=== PATIENT | male | born 1985 | race Hispanic/Latino ===

== ENCOUNTER → 2022-01-21 | Outpatient (CLI) | payer BC, OTHER | END | disposition home or self-care (01) | LOC: RAH 16:13 | PROVIDERS: ATTEND Emergency Medicine | DX: S33.5XXA Sprain of ligaments of lumbar spine, initial encounter (principal); X58.XXXA Exposure to other specified factors, initial encounter; Y93.89 Activity, other specified; Y92.89 Other specified places as the place of occurrence of the external cause; Y99.0 Civilian activity done for income or pay | CPT/HCPCS: 72100 ==

== ENCOUNTER 2025-08-10 16:10 | Emergency (ER) | payer SELFPAY ==
[~2025-08-10] VITALS: Ht 175.3 cm; Wt 213.2 kg
[2025-08-10 16:34] LABS: IMMATURE GRANULOCYTE ABSOLUTE 0.03 K/uL (0-1); NUCLEATED RED BLOOD CELLS 0.0 % (0.0-0.19); PLATELET COUNT (AUTO) 361 K/uL (130-400); RED BLOOD CELL COUNT(AUTO) 6.10 MIL/uL (4.50-6.20); RED CELL DISTRIBUTION WIDTH 15.0 % (11.0-15.5); WHITE BLOOD COUNT (AUTO) 9.0 K/uL (4.8-10.8)
[2025-08-10 16:51] LABS: CREATINE KINASE, TOTAL 81.0 U/L (21-232); CREATININE 0.9 mg/dL (0.5-1.3); GLOMERULAR FILTR. RATE CALC 109.0 mL/min (>90); GLUCOSE,RANDOM 112.0 mg/dL (70-105); SODIUM SERUM 140.0 mmol/L (136-145); UREA NITROGEN, BLOOD 11.0 mg/dL (7-18)
--- NOTE | 2025-08-10 17:11 | HMCIMG ---
EXAM: CR Chest, 1 View. CLINICAL HISTORY: cp COMPARISON: None provided. FINDINGS: LUNGS: Slight left basilar platelike atelectasis PLEURAL SPACES: No evidence of pleural effusion or pneumothorax. MEDIASTINUM: Cardiac silhouette prominent BONES: No aggressive appearing osseous lesion seen. IMPRESSION: 1. Cardiac silhouette prominent 2. Slight left basilar platelike atelectasis /[place]
--- NOTE | 2025-08-10 17:16 | EKG ---
[facility] Test Date: 2025-08-10 Test Time: 16:10:15 Pat Name: NATALIIA SERRANO Department: ED Room: Gender: M Rest Room Maid: [facility] : [id number] Requested By: COSTA ONEAL Order Number: [id number] Reading MD: Aroldo Rivas Measurements Intervals Wallace Rate: 90 P: 2 FL: 157 QRS: 49 QRSD: 89 T: 21 QT: 340 QTc: 416 Interpretive Statements Sinus rhythm Compared to ECG 04/08/2016 21:27:56 Sinus tachycardia no longer present Electronically Signed On 08-12-2025 12:49:23 CDT by Aroldo Rivas Please click the below link to view image of tracing.
[2025-08-10 17:55] VITALS: BP 171/105; PULSE 87; RESP 16; TEMP 99; O2SAT 98
--- NOTE | 2025-08-10 18:24 | ERN ---
General Chief Complaint: Chest Pain Stated Complaint: CHEST PAIN Time Seen by MD: 16:13 Time Seen by Midlevel: 16:13 Source: patient History of Present Illness Initial Comments 41-year-old male with a medical history of sleep apnea presenting to the emergency department for evaluation of intermittent chest pain that has been ongoing for the last two days. Reports similar episodes past that has been attributed to stress. Denies any other symptoms Allergies: Coded Allergies: No Known Allergies (Verified Allergy, Severe, 04/09/16) Home Meds No Active Prescriptions or Reported Meds Past Medical History Past Medical History: No Pertinent History Past Surgical History: None ROS Dictation CONSTITUTIONAL: Negative except for HPI HEAD/FACE: Negative except for HPI EENT: Negative except for HPI RESPIRATORY: Negative except for HPI GASTROINTESTINAL/ABDOMINAL: Negative except for HPI GENITOURINARY: Negative except for HPI MUSCULOSKELETAL: Negative except for HPI INTEGUMENTARY: Negative except for HPI NEUROLOGICAL/PSYCH: Negative except for HPI HEMATOLOGIC/LYMPHATIC: Negative except for HPI All Systems Negative, Except as noted above. 13 point review of systems assessed and all negative except for above. Physical Exam Physical Exam Dictation Vital Signs reviewed General Appearance: Alert, oriented x 3, no acute distress, well developed, nourished. Head and Face: non-traumatic. Eyes: PERRL, pink conjunctivas, eyelid no trauma, anterior chamber with arcus senilis. Ears: Pinnas intact and no signs of trauma or erythema ear canals clear and no discharge TM no erythema Nose: No discharge, no bleeding. Oropharynx: Mouth normal, tongue pink, pharynx clear,no erythema, tonsils no exudates, no abscesses noted, mucous membrane moist Neck: Supple, non-tender, no thyromegaly, no masses, no JVD, no bruits Breast:Deferred Chest:No tenderness, no crepitus, no paradoxical movement, no retractions Lungs:Clear, well-ventilated, symmetric, no rales, no wheezing, no rhonchi, no stridor, good breath sounds bilaterally Heart: Regular rate, regular rhythm, no murmur, no gallops Vascular: no peripheral edema, Abdomen: Soft, positive bowel sounds, nondistended, no guarding, nontender, no rebound, no masses no hepatomegaly, no splenomegaly, no Yarbrough's sign, no hernias. Rectal: Deferred Genital: Deferred Neurological: Normal speech, motor function intact, sensory function intact Musculoskeletal: Neck nontender, full range of motion, back nontender, full range of motion, Extremities: nontender, full range of motion Skin: Color pink, dry, no turgor, no rash, no lacerations, no abrasions, no co ntusions. Lymphatic: Deferred Results Laboratory and Microbiology Lab and Micro Result Laboratory Tests Test 08/10/25 16:27 08/10/25 17:48 White Blood Count 9.0 K/uL (4.8-10.8) Red Blood Count 6.10 MIL/uL (4.50-6.20) Hemoglobin 17.0 g/dL (14.0-18.0) Hematocrit 52.3 % (42-54) Mean Corpuscular Volume 85.7 fL (79-99) Mean Corpuscular Hemoglobin 27.9 pg (27.0-33.0) Mean Corpuscular Hemoglobin Concent 32.5 g/dL (32.0-36.0) Red Cell Distribution Width 15.0 % (11.0-15.5) Platelet Count 361 K/uL (130-400) Mean Platelet Volume 8.9 fL (7.5-10.5) Immature Granulocyte % (Auto) 0.3 % (0-1) Neutrophils (%) (Auto) 65.9 % (40.0-77.0) Lymphocytes (%) (Auto) 25.0 % (21.0-51.0) Monocytes (%) (Auto) 6.8 % (3.0-13.0) Eosinophils (%) (Auto) 1.6 % (0.0-8.0) Basophils (%) (Auto) 0.4 % (0.0-5.0) Neutrophils # (Auto) 5.9 K/uL (1.8-7.7) Lymphocytes # (Auto) 2.2 K/uL (1.0-4.8) Monocytes # (Auto) 0.6 K/uL (0.1-1.0) Eosinophils # (Auto) 0.14 K/uL (0.00-0.70) Basophils # (Auto) 0.04 K/uL (0.00-0.20) Absolute Immature Granulocyte (auto 0.03 K/uL (0-1) Nucleated Red Blood Cells 0.0 % (0.0-0.19) Sodium Level 140 mmol/L (136-145) Potassium Level 3.8 mmol/L (3.5-5.1) Chloride Level 101 mmol/L (101-111) Carbon Dioxide Level 31 mmol/L (21-32) Blood Urea Nitrogen 11 mg/dL (7-18) Creatinine 0.9 mg/dL (0.5-1.3) Glomerular Filtration Rate Calc 109 mL/min (>90) Random Glucose 112 mg/dL (70-105) H Total Calcium 8.5 mg/dL (8.5-10.1) Magnesium Level 2.00 mg/dL (1.80-2.40) Total Creatine Kinase 81 U/L (21-232) Troponin I High Sensitivity 7 ng/L (4-75) 7 ng/L (4-75) B-Type Natriuretic Peptide < 5 pg/mL (0-100) Labs Reviewed?: Yes MDM MDM: Differential diagnosis: Acute coronary syndrome, noncardiac chest pain, pneumonia There are no social concerns with this patient. Prescription drug management Prescriptions will include: None Medical management and examination interpretation discussions were had by me with other qualified healthcare professionals as indicated for the patient's care. ED Course Orders Procedure Category Date Status Time 12 Lead Ekg Tracing- EKG 08/10/25 Complete Technical 16:11 Cbc With Differential LAB 08/10/25 Complete 16:13 Basic Metabolic Panel LAB 08/10/25 Complete 16:13 B-Type Natriuretic LAB 08/10/25 Complete Peptide 16:13 Creatine Kinase, Total LAB 08/10/25 Complete 16:13 Magnesium LAB 08/10/25 Complete 16:13 Troponin I High LAB 08/10/25 Complete Sensitivity 16:13 Chest 1vw RAD 08/10/25 Resulted 16:13 Troponin I High LAB 08/10/25 Complete Sensitivity 17:04 Vital Signs Date Time Temp Pulse Resp B/P (MAP) Pulse Ox O2 Delivery O2 Flow Rate FiO2 08/10/25 17:55 99.0 87 16 171/105 98 Room Air* 0 21 08/10/25 16:18 99.3 90 15 190/106 96 Room Air 0 HEART Score Response (Comments) Value History: Low suspicion (0) 0 EKG: Normal 0 Age: < 45yrs (0) 0 Risk Factors: No known risk factors (0) 0 Initial Troponin: Normal limit (0) 0 HEART Score Risk: Low Risk for MACE (1-3) Total 0 DX & DISP Disposition: Discharge Departure Impression: Primary Impression: Non-cardiac chest pain Condition: Stable Scripts No Active Prescriptions or Reported Meds Additional Instructions: You were evaluated in the emergency department for intermittent chest pain. Your cardiac workup today included two troponin blood test, an EKG and a chest x-ray. They did not show any signs of a heart attack. Your labs and imaging are otherwise normal. At this time there was no evidence of a life-threatening problem. However, it is important to follow up with your primary care provider or manager area within the next few days for continued evaluation. Return to the ER immediately if you develop worsening chest pain, shortness of breath, dizziness, fainting, sweating, or any new concerning symptoms. Referrals: SANJEEV FINLEY MD (PCP) I have reviewed the case, and I agree with, Diagnosis and Plan I performed the substantive portion of the visit. I have reviewed and personally made and approve the management plan that is documented in the note by myself or the IZABEL. I acknowledge for responsibility for the patient's management plan. GERMANIA TORRE Aug 10, 2025 18:24
== END 2025-08-10 18:33 | disposition home or self-care (01) ==
LOC: EDH 16:10
DX: R07.89 Other chest pain (principal)
CPT/HCPCS: 36415; 71045; 80048; 82550; 83735; 83880; 84484; 85025; 93005; 99285